=== PATIENT | female | born 1985 | race Two or more races ===

== ENCOUNTER 2022-12-05 11:28 | Emergency (ER) | payer OTHER ==
[~2022-12-05] VITALS: Ht 170.2 cm; Wt 142.9 kg
[~2022-12-05 11:28] MED LIST: NAPR500T14 PO; NIFE60TA3 PO; PRENATAL CAPLE1 EACH PO; TERBUTALINE SULF5 MG PO
== END 2022-12-05 14:47 | disposition home or self-care (01) ==
LOC: ER 11:29
DX: R53.81 Other malaise (principal); J45.909 Unspecified asthma, uncomplicated; J06.9 Acute upper respiratory infection, unspecified; D64.9 Anemia, unspecified; Z20.822 Contact with and (suspected) exposure to COVID-19; Z91.040 Latex allergy status

== ENCOUNTER 2023-05-07 09:44 | Emergency (ER) | payer OTHER ==
[~2023-05-07] VITALS: Ht 170.2 cm; Wt 140.6 kg
[2023-05-07] MEDS ORDERED: MONTELUKAST SOD10 MG PO (10:33)
[2023-05-07] MEDS ORDERED: LEVALBUTER0.63 MG/3 IH (10:33)
[2023-05-07] MEDS ORDERED: KETOROLAC TROMETHAMINE 60 MG VIAL IM ONE (10:45)
== END 2023-05-07 12:43 | disposition home or self-care (01) ==
LOC: ER 09:44
DX: J06.9 Acute upper respiratory infection, unspecified (principal); I51.7 Cardiomegaly; Z87.09 Personal history of other diseases of the respiratory system; Z91.040 Latex allergy status; Z20.822 Contact with and (suspected) exposure to COVID-19